=== PATIENT | male | born 2000 | race Two or more races ===

== ENCOUNTER 2023-05-27 00:13 | Emergency (ER) | payer OTHER, MEDICAID ==
[~2023-05-27] VITALS: Ht 182.9 cm; Wt 57.0 kg
[2023-05-27 00:35] VITALS: TEMP 97.8; O2SAT 98
[2023-05-27 01:30] VITALS: BP 121/75; PULSE 79; RESP 18
[2023-05-27] MEDS ORDERED: KETOROLAC 15MG/ML VIAL IM ONE (01:30)
[2023-05-27] MEDS ORDERED: METOCLOPRAMIDE HCL 10MG/2ML VIAL IM ONE (01:30)
[2023-05-27] MEDS ORDERED: DIPHENHYDRAMINE 50MG/ML VIAL IM ONE (01:30)
[2023-05-27] MEDS ORDERED: SODIUM CHLORIDE 0.9% 1,000 ML IV ONE (03:30)
== END 2023-05-27 04:20 | disposition home or self-care (01) ==
LOC: ER 00:13
DX: R51.9 Headache, unspecified (principal)
CPT/HCPCS: 99284; 96372; J1200; J1885; J2765; J7030

== ENCOUNTER 2024-11-09 10:07 | Emergency (ER) | payer MEDICAID, OTHER ==
[~2024-11-09] VITALS: Ht 172.7 cm; Wt 70.0 kg
[2024-11-09 10:09] VITALS: O2SAT 100
[2024-11-09] MEDS ORDERED: AMOX1TAB16 MT (10:44)
[2024-11-09] MEDS: KETOROLAC 15MG/ML VIAL IM ONE (11:25)
[2024-11-09 11:39] VITALS: BP 145/85; PULSE 96; RESP 18; TEMP 37; O2SAT 100
== END 2024-11-09 11:43 | disposition home or self-care (01) ==
LOC: ER 10:22
DX: K04.7 Periapical abscess without sinus (principal)
CPT/HCPCS: 99283; 96372; J1885

== ENCOUNTER 2024-11-30 00:10 | Emergency (ER) | payer OTHER ==
[~2024-11-30] VITALS: Ht 185.4 cm; Wt 60.5 kg
[~2024-11-30 00:10] MED LIST: AMOX1TAB16 MT
[2024-11-30 00:26] VITALS: TEMP 36.8
[2024-11-30 02:43] VITALS: O2SAT 99
[2024-11-30 02:45] VITALS: BP 123/77; PULSE 78; RESP 14; TEMP 98.3
[2024-11-30] MEDS: KETOROLAC 30MG/ML VIAL IM ONE (02:45)
[2024-11-30] MEDS: ACETAMINOPHEN 325MG TABLET PO ONE (02:45)
[2024-11-30 03:26] LABS: BASOPHILS % 0.3 % (0.0-2.0); EOSINOPHILS % 1.4 % (0.0-5.0); HEMATOCRIT. 45.4 % (42.0-52.0); HEMOGLOBIN. 15.1 g/dL (14.0-18.0); LYMPHOCYTES % 45.8 % (20.0-50.0); MEAN PLATELET VOLUME 8.0 fl (7.4-10.4); MONOCYTES % 7.1 % (2.0-8.0); NEUTROPHILS % 45.4 % (40.0-76.0); PLATELET 216 x1000/uL (130-400); RED BLOOD CELL COUNT 4.93 mill/uL (4.7-6.1); RED CELL DISTRIBUTION WIDTH 13.1 % (11.6-14.6)
[2024-11-30 03:40] LABS: CREATININE 1.0 mg/dL (0.6-1.3); UREA NITROGEN BLOOD 12 mg/dL (9-23)
== END 2024-11-30 04:03 | disposition home or self-care (01) ==
LOC: ER 00:10
DX: R51.9 Headache, unspecified (principal); R53.83 Other fatigue
CPT/HCPCS: 99283; 80048; 85025; 36415; 96372; J1885

== ENCOUNTER 2025-02-18 22:33 | Emergency (ER) | payer OTHER ==
[~2025-02-18] VITALS: Ht 185.4 cm; Wt 66.0 kg
[2025-02-18 22:48] VITALS: O2SAT 99
[2025-02-18] MEDS: KETOROLAC 15MG/ML VIAL IM ONE (23:54)
[2025-02-18] MEDS: ACETAMINOPHEN 500MG TABLET PO ONE (23:54)
[2025-02-19] MEDS ORDERED: AMOX1TAB16 MT (00:12)
[2025-02-19 01:00] VITALS: BP 130/77; PULSE 74; RESP 14; TEMP 36.8; O2SAT 99
== END 2025-02-19 01:05 | disposition home or self-care (01) ==
LOC: ER 22:33
DX: K04.7 Periapical abscess without sinus (principal)
CPT/HCPCS: 99283; 96372; J1885